=== PATIENT | male | born 1935 | race Caucasian/White ===

== ENCOUNTER 2024-12-22 09:34 | Inpatient (IN) | payer OTHER ==
[~2024-12-22] VITALS: Ht 167.6 cm; Wt 72.1 kg
[2024-12-22] MEDS ORDERED: Hytrin2 MG PO (09:46)
[2024-12-22] MEDS ORDERED: ATOR20 PO (09:46)
[2024-12-22] MEDS ORDERED: LISI5 PO (09:47)
[2024-12-22 10:04] LABS: BASOPHILS ABSOLUTE AUTO 0.03 K/mm3 (0.00-0.23); BASOPHILS PERCENT AUTO 0 % (0-2); EOSINOPHILS PERCENT AUTO 1 % (0-6); Hematocrit 32.3 % (37.0-53.0); IMMATURE GRAN ABSOLUTE AUTO 0.02 K/mm3 (0.00-0.10); IMMATURE GRAN PERCENT AUTO 0 % (0-1); LYMPHOCYTES ABSOLUTE AUTO 0.86 K/mm3 (0.84-5.20); LYMPHOCYTES PERCENT AUTO 12 % (21-46); MONOCYTES ABSOLUTE AUTO 0.73 K/mm3 (0.16-1.47); MONOCYTES PERCENT AUTO 11 % (4-13); Mean Corpuscular HGB Conc 34.1 g/dL (31.5-36.5); Mean Corpuscular Volume 94 fL (80-100); Mean Platelet Volume 10.4 fL (9.1-12.4); NEUTROPHILS PERCENT AUTO 75 % (41-73); Platelet Count 215 K/mm3 (150-400); RDW Coefficient Variation 13.9 % (11.7-14.2); RDW Standard Deviation 47.8 fL (35.1-46.3); Red Blood Cell Count 3.44 M/mm3 (4.30-5.90); White Blood Cell Count 6.94 K/mm3 (4.00-11.30)
[2024-12-22 10:47] LABS: Albumin/Globulin Ratio 0.9 (0.8-1.8); Bilirubin, Total 0.3 mg/dL (0.1-1.0); Bun/Creatinine Ratio 21.2 (12.0-20.0); Calcium, Blood 9.1 mg/dL (8.5-10.1); Creatinine, Blood 0.9 mg/dL (0.60-1.20); Globulin, Blood 3.3 g/dL (2.2-4.0); Potassium, Blood 4.1 mmol/L (3.5-5.5); Total Protein, Blood 6.3 g/dL (6.4-8.2)
[2024-12-22] MEDS ORDERED: MetroNIDAZOLE 500MG/NS 100 ml 100 ML IV ONE (11:40)
[2024-12-22] MEDS ORDERED: Lactated Ringer's 1,000 ML IV SCH (12:10)
[2024-12-22] MEDS ORDERED: Bisacodyl 10 MG Supp PR PRN (12:10)
[2024-12-22] MEDS ORDERED: Ondansetron 4 MG TAB PO PRN (12:15)
[2024-12-22] MEDS ORDERED: Naloxone HCl 0.4MG / ML 1ML Vial IV PRN (12:15)
[2024-12-22] MEDS ORDERED: TraZODone HCl 50 MG Tab PO PRN (12:15)
[2024-12-22] MEDS ORDERED: Magnesium Hydroxide Conc 10 ML UDC PO PRN (12:15)
[2024-12-22] MEDS ORDERED: Acetaminophen 325 MG TABLET PO PRN (12:15)
[2024-12-22] MEDS ORDERED: HYDROmorphone HCl/Pf 1MG SYR IV PRN (12:15)
[2024-12-22] MEDS ORDERED: OxyCODONE HCL 5 MG TAB PO PRN (12:15)
[2024-12-22] MEDS ORDERED: HydrALAZINE HCl 20 MG / ML 1ML Vial IV PRN (12:20)
[2024-12-22] MEDS ORDERED: FLU VACC TS2024-25(6MOS UP)/PF 45 MCG/0.5 ML SYRINGE IM ONE (13:00)
--- NOTE | 2024-12-22 13:05 | NUR ---
ARRIVAL NOTE PT INTO ROOM 227 FROM ER. A/O X4, PT AMBULATING INDEPENDENTLY. NEW GOWN AND SOCKS. VSS, PT HYPERTENSIVE BUT TALKING AND MOVING AROUND, WILL RETAKE ONCE PT IS SETTLED. CALL LIGHT IN REACH.
[2024-12-22 13:07] VITALS: BP 170/65
[2024-12-22 14:45] VITALS: BP 153/67
[2024-12-22] MEDS ORDERED: Pantoprazole Sodium 40 MG Injection IV SCH (16:30)
--- NOTE | 2024-12-22 18:02 | NUR ---
SHIFT SUMMARY PT IS ALERT, RESPONSIVE, FORGETFUL AT TIMES. BED ALARM IN PLACE. PT DENIES PAIN, NAUSEA. IV FLUIDS AND ABX GIVEN ORDERED. VSS. PT RESTING MOST OF SHIFT BUT AMBULATING SBA, VOIDING, TOLERATING CL. CALL LIGHT IN REACH.
[2024-12-22 19:32] VITALS: BP 141/63
[2024-12-22] MEDS ORDERED: Famotidine 20 MG Tab PO SCH (21:00)
[2024-12-22] MEDS ORDERED: Docusate Sodium 100 MG Cap PO SCH (21:00)
[2024-12-22] MEDS ORDERED: Lactobacil 2-S.Thermo-Bifido 1 1 Cap PO SCH (21:00)
[2024-12-23] MEDS ORDERED: NS 1,000 ML IV SCH (00:55)
[2024-12-23 05:11] LABS: BASOPHILS ABSOLUTE AUTO 0.04 K/mm3 (0.00-0.23); BASOPHILS PERCENT AUTO 1 % (0-2); EOSINOPHILS ABSOLUTE AUTO 0.26 K/mm3 (0.00-0.68); EOSINOPHILS PERCENT AUTO 4 % (0-6); Hematocrit 32.5 % (37.0-53.0); Hemoglobin 10.9 g/dL (13.5-17.5); IMMATURE GRAN ABSOLUTE AUTO 0.02 K/mm3 (0.00-0.10); IMMATURE GRAN PERCENT AUTO 0 % (0-1); LYMPHOCYTES ABSOLUTE AUTO 1.02 K/mm3 (0.84-5.20); LYMPHOCYTES PERCENT AUTO 16 % (21-46); MONOCYTES PERCENT AUTO 11 % (4-13); Mean Corpuscular HGB 31.3 pg (26.0-34.0); Mean Corpuscular HGB Conc 33.5 g/dL (31.5-36.5); Mean Corpuscular Volume 93 fL (80-100); Mean Platelet Volume 10.7 fL (9.1-12.4); NEUTROPHILS ABSOLUTE AUTO 4.17 K/mm3 (1.96-9.15); NEUTROPHILS PERCENT AUTO 67 % (41-73); Platelet Count 226 K/mm3 (150-400); RDW Coefficient Variation 13.8 % (11.7-14.2); RDW Standard Deviation 47.8 fL (35.1-46.3); Red Blood Cell Count 3.48 M/mm3 (4.30-5.90); White Blood Cell Count 6.21 K/mm3 (4.00-11.30)
[2024-12-23 05:23] VITALS: BP 163/71
[2024-12-23 05:38] LABS: Albumin, Blood 2.7 g/dL (3.4-5.0); Albumin/Globulin Ratio 0.9 (0.8-1.8); Bilirubin, Total 0.3 mg/dL (0.1-1.0); Calcium, Blood 8.9 mg/dL (8.5-10.1); Creatinine, Blood 0.87 mg/dL (0.60-1.20); Magnesium, Blood 2.1 mg/dL (1.6-2.4); Potassium, Blood 4.2 mmol/L (3.5-5.5); Total Protein, Blood 5.7 g/dL (6.4-8.2)
[2024-12-23] MEDS ORDERED: Piperacillin/Tazobactam Sod 4.5 GM in NS 100 ML IV SCH (06:00)
--- NOTE | 2024-12-23 06:36 | NUR ---
SHIFT SUMMARY AOX4, FORGETFUL @TIMES. VSS. TELE SB 48'S. DENIES ANY PAIN, N/V OR DYSPNEA. TOLERATING CLEAR LIQUID DIET. HYPERACTIVE BT. PT REPORTS HE HAD BM TONIGHT, HE FLUSHED TOLIET BEFORE STAFF COULD SEE. L EYELID DROOPY & PT UNABLE TO OPEN EYELID. WHEN I RAISED EYELID & ASKED HOW MANY FINGERS I WAS HOLDING PT REPORTED "4" WHEN I ONLY HAD 2 FINGERS UP. PT STATES HAVING DOUBLE VISION & ITS MORE "BRIGHT". MRI FORM FILLED OUT THIS AM & FAXED. CALL LIGHT IN REACH.
[2024-12-23 07:35] VITALS: BP 171/60
[2024-12-23] MEDS ORDERED: Ampicillin Sod/Sulbactam Sod 1.5 GM in NS 100 ML IV SCH (12:00)
[2024-12-23 12:11] VITALS: BP 148/57
[2024-12-23 14:58] VITALS: BP 169/69
[2024-12-23] MEDS ORDERED: OMEPRAZOLE MAGN20 MG PO (16:50)
[2024-12-23] MEDS ORDERED: CIPR500 PO (16:51)
--- NOTE | 2024-12-23 17:11 | NUR ---
DISCHARGE PT LEFT VIA WHEELCHAIR. DENIES ANY PAIN DURING SHIFT, TOLERATING DIET WELL. PRESCRIPTIONS SENT TO [facility] PER REQUEST. ALL BELONGINGS WITH PATIENT.
== END 2024-12-23 17:04 | disposition home or self-care (01) | DRG 392 ==
LOC: ER 09:34 → ERHOLD 12:07 → SURS 12:07
PROVIDERS: Physician Assistant; ADMIT Hospitalist
DX: K29.80 Duodenitis without bleeding (principal); E78.5 Hyperlipidemia, unspecified; I10 Essential (primary) hypertension; H02.402 Unspecified ptosis of left eyelid; H05.20 Unspecified exophthalmos; Z79.899 Other long term (current) drug therapy; D64.9 Anemia, unspecified; K57.10 Diverticulosis of small intestine without perforation or abscess without bleeding
CPT/HCPCS: 36415; 70540; 70551; 80053; 83605; 83735; 85025; 94762; 99285; A9270; J0295; J2470; J2543; J7030; J7120